=== PATIENT | female | born 1975 | race Caucasian/White ===

== ENCOUNTER → 2024-01-04 10:18 | Outpatient (BNVA) | payer BC, SELFPAY | PROVIDERS: PCP Obstetrics & Gynecology Female Pelvic Medicine and Reconstructive Surgery; Visit Provider Physician Assistant ==

== ENCOUNTER → 2024-01-04 10:18 | Outpatient (BNVA) | payer BC, SELFPAY | PROVIDERS: PCP Obstetrics & Gynecology Female Pelvic Medicine and Reconstructive Surgery; Referring Provider Physician Assistant; Visit Provider Physician Assistant ==

== ENCOUNTER 2024-01-09 12:36 | Outpatient (REF) | payer BC, SELFPAY ==
--- NOTE | ~2024-01-09 | MR_ITS ---
MR CERVICAL SPINE WITHOUT IV CONTRAST CLINICAL INFORMATION: Myelopathic reflexes on exam. COMPARISON: None available. TECHNIQUE: MRI of the cervical spine was obtained using routine sequences without contrast. FINDINGS: Reversal of the cervical lordosis. Vertebral body heights are maintained. There is moderate disc volume loss at C4-C5 and C5-C6. There is no bone marrow edema. There are no acute fractures. The craniocervical junction is unremarkable. Partially imaged intracranial compartment is unremarkable. Cervical arterial flow voids are maintained. C2-C3: Disc contour posteriorly is normal. Uncovertebral joint spurring and facet arthropathy result in mild bilateral foraminal encroachment. C3-C4: Disc contour is normal. There is no central canal stenosis and there is no foraminal stenosis. C4-C5: A broad-based left paracentral/left foraminal disc protrusion that is in part disc osteophyte results in flattening of the left ventral cord, mild to moderate left-sided central canal stenosis, effacement of the left axillary recess, and severe left-sided foraminal stenosis with compression of the exiting left C5 nerve root. C5-C6: There is a broad-based right paracentral disc protrusion resulting in severe central canal stenosis, significant mass effect on the cervical spinal cord, and effacement of the right greater than left axillary recess. Possible mild intramedullary T2 signal changes within the left cord at this level that can be correlated for clinical signs of cervical myelopathy. Uncovertebral joint spurring and facet arthropathy result in severe left and moderate to severe right foraminal stenosis. C6-C7: Diffuse annular disc bulge. Uncovertebral joint spurring and facet arthropathy result in moderate left-sided foraminal encroachment. C7-T1: Normal. MR/MR cervical spine wo con IMPRESSION: * At C5-C6, there is a broad-based right paracentral disc protrusion resulting in severe central canal stenosis, significant mass effect on the cervical spinal cord, and effacement of the right greater than left axillary recess. Possible mild intramedullary T2 signal changes within the left cord at this level that can be correlated for clinical signs of cervical myelopathy. Uncovertebral joint spurring and facet arthropathy result in severe left and moderate to severe right foraminal stenosis at C5-C6. * At C4-C5, a broad-based left paracentral/left foraminal disc protrusion that is in part disc osteophyte results in flattening of the left ventral cord, mild to moderate left-sided central canal stenosis, effacement of the left axillary recess, and severe left-sided foraminal stenosis with compression of the exiting left C5 nerve root. * At C6-C7, multifactorial degenerative changes result in moderate left-sided foraminal stenosis.
== END 2024-01-09 12:37 | disposition home or self-care (01) ==
LOC: HO.MRI 12:36
PROVIDERS: PCP Family Medicine; Visit Provider Physician Assistant
DX: G95.9 Disease of spinal cord, unspecified (principal)
CPT/HCPCS: 72141

== ENCOUNTER 2024-01-18 10:07 | Outpatient (AMB) | payer BC, SELFPAY ==
--- NOTE | 2024-01-18 10:09 | HO.SPINEOV ---
Intake Intake Visit Reasons: Discuss sx Intake Note: Ms. Castillo is here today to discuss surgery. 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 To recap she was initially seen for lumbar spine complaints and was found to have myelopathic reflexes on exam. Her primary complaint was found to be numbness/tingling in her bilateral upper extremities. She had also been dropping objects and experiencing a great deal of distress throughout the day. On examination today she has redemonstration of her myelopathic reflexes including (+) Caro's bilaterally, hyperreflexia diffusely, and (+) Babinski sign bilaterally. Upon review of her cervical MRI, she was found to have severe spinal canal stenosis at C5-6, with associated foraminal stenosis at this level. She also has moderate spinal canal and foraminal stenosis at C4-5, worse on the left. She was evaluated in office today alongside Dr. Schafer who offered the patient a C4-5, C5-6 ACDF to address her cervical myelopathy. She has been tentatively been scheduled for 02/07/2024. Hari was given risk and benefits of surgery including but not limited to infection, hematoma, nerve injury, durotomy, weakness, bowel/bladder injury, persistent pain, as well as the option to continue with conservative treatment and patient wishes to proceed with surgery. They are aware they should stop NSAIDs 7 days prior to surgery. All questions were answered to the best of our ability. If there is anything about this patients medical history that we have overlooked or concerns you have about us proceeding with surgery we would appreciate any input you can offer. Total amount of time spent in this visit was 30 minutes in discussion of symptoms, surgical scheduling, MRI imaging results and subsequent plan of care. Marco Schafer MD,PhD [facility] Coding Level of Care Code Est Pt Level 4 (82465) Diagnoses Cervical myelopathy G95.9
== END 2024-01-18 11:01 | disposition home or self-care (01) ==
PROVIDERS: PCP Family Medicine; Visit Provider Physician Assistant
DX: G95.9 Disease of spinal cord, unspecified (principal)
CPT/HCPCS: 99214

== ENCOUNTER → 2024-01-18 10:07 | Outpatient (BNVA) | payer BC, SELFPAY | PROVIDERS: PCP Family Medicine; Visit Provider Physician Assistant ==

== ENCOUNTER → 2024-01-26 10:12 | Outpatient (BNV) | payer BC, SELFPAY | PROVIDERS: PCP Family Medicine; Visit Provider Internal Medicine Cardiovascular Disease | DX: I10 Essential (primary) hypertension (principal); Z01.810 Encounter for preprocedural cardiovascular examination | CPT/HCPCS: 93010 ==

== ENCOUNTER 2024-02-07 09:04 | Day surgery (SDC) | payer BC, SELFPAY ==
--- NOTE | 2024-01-26 | ECG_ITS ---
Test Reason : PREOP Blood Pressure : / mmHG Vent. Rate : 088 BPM Atrial Rate : 088 BPM P-R Int : 112 ms QRS Dur : 078 ms QT Int : 360 ms P-R-T Axes : 055 072 037 degrees QTc Int : 435 ms Normal sinus rhythm Normal ECG No previous ECGs available Referred By: Yris Baca Electronically Signed By:TESSIE MEJIA MD
[2024-01-26 09:32] VITALS: BP 166/98; PULSE 87; RESP 18; O2SAT 97; BMI 27.3
--- NOTE | 2024-01-26 09:52 | HO.ANESPROP2 ---
Documented by User: Yris Baca NP 02/15/24 15:08 HPI - Anesthesia Eval Consult details Narrative: 48yo F for C4-5,C5-6 Ant Cerv Discectomy w/ fusion, 02/07/24 BP up at PAT. Reports stressful social situation and increased pain. Will check at home and bring log DOS. PMFSH Active Problems Active Problems: All Active Problems Cervical myelopathy (Acute) Past Medical History Medical History HTN (hypertension) Arthritis Numbness Cough Wheezing Hx of fracture of leg Adrenal mass Renal cyst Thyroid nodule ADHD (attention deficit hyperactivity disorder) Family History Family history of problems with anesthesia: No Surgical History Surgical History H/O colonoscopy History of surgery on right wrist History of wisdom tooth extraction Hx of total adrenalectomy History of Problems with Anesthesia: No Social History Social History Are you a primary resident care manager rn to a significant other at home: No Do you presently have visiting nurse or other home services: No Patient Tobacco Use Status: Never used Tobacco Meds Allergies Allergy/AdvReac Type Severity Reaction Status Date / Time lisinopril Allergy Flushing Verified 01/25/24 10:25 pollen extracts Allergy Unknown Verified 01/25/24 10:25 Exam Height,Weight and Vital Signs: Height 5 ft 5 in Weight 74.389 kg Last Vital Signs Pulse 87 01/26/24 09:32 Resp 18 01/26/24 09:32 BP 166/98 H 01/26/24 09:32 Pulse Ox 97 01/26/24 09:32 O2 Del Method Room Air 01/26/24 09:32 Pertinent Lab Results Pertinent Lab Results: Lab Results 01/26/24 Range/Units 10:27 WBC 6.8 (4.8-10.8) X10*3/uL RBC 4.89 (4.20-5.50) X10*6/uL Hgb 15.3 (12.0-16.0) g/dl Hct 44.4 (37.0-47.0) % MCV 90.8 (80.0-98.0) fL MCH 31.3 (27.0-33.0) pg MCHC 34.5 (31.0-35.0) g/dl RDW 12.0 (11.0-16.0) % Plt Count 327 (160-400) X10*3/uL MPV 9.9 (9.4-12.3) fL Absolute Nucleated RBC 0.000 (0.0-0.012) X10*3/uL Nucleated RBC % (auto) 0.0 (0.0-0.2) /100WBC Sodium 140 (135-145) mmol/L Potassium 4.4 (3.3-5.1) mmol/L Chloride 104 (96-108) mmol/L Carbon Dioxide 30 H (22-29) mmol/L Anion Gap 10 L (12-20) BUN 9 (9-16) mg/dL Creatinine 0.64 (0.5-1.4) mg/dL Estim Creat Clear Calc 108.5 Estimated GFR > 60 Random Glucose 95 (60-115) mg/dL Calcium 10.0 (8.4-10.2) mg/dL Narrative Narrative: EKG 01/2024 Vent. Rate : 088 BPM Atrial Rate : 088 BPM P-R Int : 112 ms QRS Dur : 078 ms QT Int : 360 ms P-R-T Axes : 055 072 037 degrees QTc Int : 435 ms Normal sinus rhythm Normal ECG No previous ECGs available Airway TM Dist: >3cm Neck ROM: Limited Loose/Missing/Broken Teeth: Yes (Molar pulled. Temp crown stable) Heart: RRR Lungs: CTAB Assessment and Plan Assessment Anesthesia Assessment: Anesthesia Plan Discussed and PAT Visit Final Anesthetic Review Family History of Problems with Anesthesia: No History of Problems with Anesthesia: No Documented by User: Flako Duarte MD 02/16/24 12:36 COUNT INCLUDES THE [facility] Past Medical History Medical History HTN (hypertension) Arthritis Numbness Cough Wheezing Hx of fracture of leg Adrenal mass Renal cyst Thyroid nodule ADHD (attention deficit hyperactivity disorder) Surgical History Surgical History H/O colonoscopy History of surgery on right wrist History of wisdom tooth extraction Hx of total adrenalectomy Social History Social History Are you a primary resident care manager rn to a significant other at home: No Do you presently have visiting nurse or other home services: No Patient Tobacco Use Status: Never used Tobacco Meds Allergies Allergy/AdvReac Type Severity Reaction Status Date / Time lisinopril Allergy Flushing Verified 01/25/24 10:25 pollen extracts Allergy Unknown Verified 01/25/24 10:25 Assessment and Plan Final Anesthetic Review ASA Class: II Final Preanesthetic Review: No Changes in Pt Med Stat, Meds/Allgs Chart Reviewed, Consent Obtained/Reviewed and Anes Risks/Benef Reviewed Patient Risk: Low Procedure Risk: Low Anesthetic Plan Anesthetic Plan: GA Disposition: Standard PACU
[2024-01-26 10:51] LABS: Hematocrit 44.4 % (37.0-47.0); Hemoglobin 15.3 g/dl (12.0-16.0); Mean Corpuscular HGB Conc 34.5 g/dl (31.0-35.0); Mean Corpuscular Hemoglobin 31.3 pg (27.0-33.0); Mean Corpuscular Volume 90.8 fL (80.0-98.0); Mean Platelet Volume 9.9 fL (9.4-12.3); Platelet Count 327 X10*3/uL (160-400); Red Blood Count 4.89 X10*6/uL (4.20-5.50); White Blood Count 6.8 X10*3/uL (4.8-10.8)
[2024-01-26 11:23] LABS: Anion Gap 10 (12-20); Blood Urea Nitrogen 9 mg/dL (9-16); Carbon Dioxide 30 mmol/L (22-29); Chloride 104 mmol/L (96-108); Creatinine Clr Calc Pharmacy 108.5; Estimated Glomerular Filt Rate > 60; Glucose Random 95 mg/dL (60-115); Potassium 4.4 mmol/L (3.3-5.1); Sodium 140 mmol/L (135-145)
[2024-02-07] VITALS (15 sets, daily range): BP systolic 115–160; BP diastolic 51–93; PULSE 73–85; RESP 10–17; TEMP 36.1–37; O2SAT 95–99
--- NOTE | ~2024-02-07 | FL_ITS ---
EXAMINATION: XR FLUOROSCOPY WITH IMAGES CLINICAL INFORMATION: C4-5, C5-6 Ant Cerv Disc w/ fusion. COMPARISON: None available. TECHNIQUE: Fluoroscopy Supervised By: Dr. Schafer. Fluoroscopy Time: 3.9 sec. Cumulative Dose: 0.998 mGy. DAP: 0.340 Gycm2. Images: 2. FINDINGS: Intraoperative fluoroscopy and spot films were performed during a procedure in the OR. ACDF hardware seen at C4-C5 and C5-C6. Please see Dr. Schafer' report for complete details. FL/FL guidance in OR IMPRESSION: Intraoperative fluoroscopy and spot films were obtained. Please see Dr. Schafer' report for complete details.
--- NOTE | 2024-02-07 07:03 | MHC.SHP ---
Pre-Procedural Eval Section A - 24 Hr Update-Section A only Date of Service: 02/07/24 The patient is an INPATIENT: No Changes since office visit: No Cold of Flu in the past 2 weeks, No New Medical Problems, No Changes in Medication and No Patient answered all questions The patient has been examined within 24 hours of the surgical procedure. The History & Physical has been completed within 30 days and I have reviewed it.: No Section B - Complete if H&P > 30 days Chief Complaint: Disease of spinal cord, unspecified Allergies: Allergies Allergy/AdvReac Type Severity Reaction Status Date / Time lisinopril Allergy Flushing Verified 01/25/24 10:25 pollen extracts Allergy Unknown Verified 01/25/24 10:25 Review of Systems Sugical H&P ROS: Negative: Constitution, Cardiovascular, Respiratory, Neurological, Psychiatric, Hem-Onc, Allergic/Immunologic, Gastrointestinal, Genitourinary, Musculoskeletal, Integumentary, Endocrine and Eyes/Ears/Nose/Throat Exam Surgical H&P Exam: Not Evaluated: HEENT, Not Evaluated: Heart, Not Evaluated: Lungs, Not Evaluated: Extremities, Not Evaluated: Abdomen, Not Evaluated: Skin and Not Evaluated: Neurological Plan Diagnosis/Plan: Unchanged C4-5, C5-6 ACDF Time Spent With Patient Time: Total time managing care of this patient today _5___ minutes.
[2024-02-07 09:44] LABS: UPreg QC Valid YES; Urine Pregnancy NEGATIVE (NEGATIVE)
[2024-02-07] MEDS: methocarbamoL 750 MG TABLET PO (09:51)
[2024-02-07] MEDS: Gabapentin 300 MG CAPSULE PO (09:51)
[2024-02-07] MEDS: Lactated Ringers 1,000 ML 100 ML IVCONT (09:51)
--- NOTE | 2024-02-07 15:27 | W.PM.OPN ---
Operative Note Operative Note Date of Service: 02/07/24 Narrative: Preoperative Diagnosis: Cervical myelopathy Procedure: C4-C5, C5-C6 Anterior discectomy, arthrodesis and implantation cage ; C4-C6 anterior instrumentation ; local autograft; microscope Informed Consent was obtained for this operation. I have explained the nature, purpose and benefits of the operation. I have discussed the risks and benefit of the operation including possible complications or adverse events with patient/family. Alternative(s) were discussed with the patient with their relative benefits and risks as well as the consequences of not accepting the operation were included in obtaining consent. Surgeon: CYNDI CHO MD, PHD Procedure Assisted By: keisha Herrera Description of Procedure: Patient is suffering from progressive cervical myelopathy. MRI shows spinal cord compression at C4-5 C5-6. She was offered a anterior diskectomy and fusion of these levels. The procedure complications were explained. The patient was consented. The patient was brought to the operating room and endotracheally intubated. The patient was put in supine position with slight extension of the neck. Prep and drape was done followed by timeout. A mid cervical incision was made followed by opening of the platysma. The prevertebral fascia was reached following the natural planes while the physician assistant guest services manager provided manual retraction. The prevertebral fascia was opened to expose the disc space. A spinal needle was placed in the disk space to confirm the correct level with xray. The longus colli muscles were released bilaterally and a self retaining retractor was inserted. An initial diskectomy was done of C4-5 and C5-C6 towards the posterior annulus. Two Manakin Sabot pins were placed in the C5-C6 vertebral bodies and distraction was give over the interspace.The microscope was brought in. The remainder of the discectomy was completed. The posterior ligament was opened and resected to expose the underlying dura. Large Osteophytes were resected from the body of C5-C6 and saved for autograft. Significant spinal cord compression was present caused by the osteophytes. Bilateral foraminotomies were done. The endplates were prepared after which a 6 mm cage filled with autograft was inserted into the disc space. A separate attached plate was locked down with 2 x 14 mm screws as anterior instrumentation. Then attention was turned to the C4-5 disc space. Manakin Sabot pin was placed in the body of C4 and distraction was getting over the interspace. The diskectomy was completed. The posterior longitudinal ligament was opened on the right side and resected towards the left side where decompression of the spinal cord was. Large osteophytes were again resected to decompress the spinal cord and to decompress the exiting nerve root on the left side. No foraminal stenosis was present on the right side. A 6 mm cage filled with autograft was inserted into the disc space. A separate attached plate was locked down with 2 x 14 mm screw as anterior instrumentation. Final x-rays in AP and lateral projection showed a satisfactory position of the implants and instrumentation. The physician assistant guest services manager took over. The Manakin Sabot pin was removed. Hemostasis was done. He closed the incision in 2 layers with a 3-0 Vicryl. Steri-Strips used to approximate incision. An OpSite with Tegaderm was used to cover the incision. All sponge and needle counts were correct. Patient was extubated and transported in stable is to recovery room. Anesthesia: General Estimated Blood Loss (ml): 15 mL Duration of Surgery: 80 minutes Postoperative Plan: Discharge home Complications: None
--- NOTE | 2024-02-07 15:39 | PM.DS ---
DS: Providers Provider Date of Service: 02/07/24 Date of discharge: 02/07/24 Primary care physician: Elodia Mcleod MD Admitting clinician: Carlos Schafer DS: Diagnosis Discharge Diagnosis (1) Cervical myelopathy: Status: Acute DS: Summary Time Attestation Discharge Coordination Time (in mins): 6 Quality: Safe Use of Opioids Does Pt have an Active Cancer Diagnosis on the Problem List?: No Quality: Stroke Does the patient have a stroke diagnosis?: No Physical Exam Vital Signs: Vital Signs: Last Vital Signs Temp 98.6 F 02/07/24 09:53 Pulse 85 02/07/24 09:53 Resp 16 02/07/24 09:53 BP 160/93 H 02/07/24 09:53 Pulse Ox 98 02/07/24 09:53 O2 Del Method Room Air 02/07/24 09:53 BMI result Body Mass Index 27.3 DS: Data Data Completed and Pending Labs on day of discharge: Laboratory Results - last 24 hr 02/07/24 09:15 Urine Test NEGATIVE Discharge Plan Discharge Patient Disposition: Home, Self-Care Referrals: Elodia Mcleod MD [Primary Care Provider] - 1 Week Discharge Medications: New oxycodone 5 mg tablet 5 mg PO Q4H PRN (Reason: pain) Qty: 30 0RF Rx Instructions: Partial Fill upon patient request. docusate sodium [Colace] 100 mg capsule 100 mg PO BID Qty: 20 0RF Discharge Orders: Discharge Order (Routine); Ordered 02/07/24 Ordered By: Tone Britt Diet: Advance to usual diet Activity on Discharge: As tolerated Activity Restrictions/Additional Instructions: After your spinal surgery we ask you to observe the following restrictions/guidelines: Activity: It is normal to feel some discomfort as you increase your activity, but that will improve with time. We ask you avoid heavy lifting or acitivities that cause pain. As a general rule, 8lbs is a safe limit for lifting right after surgery. Walk as much as you feel comfortable but not to exhaustion. You will feel extra tired the first few days after surgery. Stay well hydrated. It is OK to walk up and down stairs You may return to driving when you are off narcotics (such as vicodin, oxycodone, dilaudid, etc), and you are back to normal functional capacity. If you have any concerns please check with office before driving. Return to work is specific to each patient and each surgery, so please speak with your doctor/PA at first follow up. Please bring paperwork such as FMLA at that time if you need it filled out. Medications: For optimum pain control, it is best to start with a combination of 500 mg of Tylenol every 4 hours with 600 mg of Motrin every 8 hours, and use narcotics as needed in between for breakthrough pain. We will give you a short supply of narcotics after surgery (usually one weeks worth). If you need more please call the office but do not use more than prescribed. You will need to give our office 48 hours notice if you need narcotics refilled and we do not fill narcotics on weekends or evenings. If you are on a narcotic, it is a good idea to take a stool softener such as colace or senna to avoid constipation If you take blood thinner such as aspirin, Plavix, Coumadin, Effient, Eliquis etc for conditions such as Afib, DVT, Pulmonary embolus, coronary disease, stents etc please speak with your surgeon about specific details as to when you can resume these medications. You can resume NSAIDs on post op day 1 (eg: Motrin, Naproxen, etc). Follow up: Please call the office, , after surgery to arrange a 3 week follow up for wound check. Wound Care: You may remove your dressing on the first day after surgery. ?You may ?leave open to air. Please do not remove the steri strips underneath. they will fall off on their own in one week. IT IS NORMAL FOR THE WOUND TO OOZE OR BE BLOODY FOR A FEW DAYS AFTER SURGERY. ?IF THIS HAPPENS JUST PLACE NEW DRESSING OVER IT TO AVOID STAINING CLOTHES. You may shower on post op day # 1 We ask that you do not let the water soak the wound. If it does get wet, just towel dry lightly. Please do not scrub your incision or place any type of chemical/ointment on the wound. No tub baths, pools or jacuzzis for one month. If you have any leaking or redness from your wound, or fevers, please call office Print Language: Croatian
[2024-02-07] MEDS: HYDROmorphone HCl 0.5 MG/0.5 ML SYRINGE IVPUSH ×2 (16:15→16:35)
== END 2024-02-07 18:10 | disposition home or self-care (01) ==
PROVIDERS: Nurse Practitioner; PCP Family Medicine; Visit Provider Neurological Surgery
PROC: (CPT 22551; principal; 2024-02-07 12:30)
DX: G95.9 Disease of spinal cord, unspecified (principal); R20.0 Anesthesia of skin; R20.2 Paresthesia of skin; I10 Essential (primary) hypertension; F90.9 Attention-deficit hyperactivity disorder, unspecified type; Z80.3 Family history of malignant neoplasm of breast; Z88.8 Allergy status to other drugs, medicaments and biological substances
CPT/HCPCS: 22551; 22552; 22853; 20936; 22845; 36415; 80048; 81025; 85027; 93005; C1713; C1889; J0131; J0690; J1100; J1170; J2250; J2405; J2704; J3010

== ENCOUNTER → 2024-02-07 09:04 | Outpatient (BNV) | payer BC, SELFPAY | PROVIDERS: PCP Family Medicine; Visit Provider Neurological Surgery | DX: M50.021 Cervical disc disorder at C4-C5 level with myelopathy (principal); M50.022 Cervical disc disorder at C5-C6 level with myelopathy; G95.9 Disease of spinal cord, unspecified | CPT/HCPCS: 20930; 22551; 22552; 22845; 22853; 99499 ==

== ENCOUNTER 2024-02-28 14:57 | Outpatient (AMB) | payer BC, SELFPAY ==
--- NOTE | 2024-02-28 15:01 | HO.SPINEOV ---
Intake Visit Reasons: 1st post op Intake Note: Ms. Castillo is here today for her 1st post-op appointment. Warehouse Manager Required: No Allergies lisinopril Allergy (Verified 01/25/24 10:25) Flushing pollen extracts Allergy (Verified 01/25/24 10:25) Unknown Assessment & Plan Assessment & Plan (1) Cervical myelopathy: Code(s): G95.9 - Disease of spinal cord, unspecified Category: Medical Plan Procedure: C4-C5, C5-C6 ACDF Hari comes in today for her 1st postoperative visit. She reports she is satisfied with the surgery and feels better than she did pre-operatively. The patient reports she is up walking around and completing the majority of her ADLs. She reports that she no longer suffers from her bilateral hand weakness, numbness/tingling, or left-sided foot pain. She does have some posterior neck tenderness, which I explained to her his very common for these types of surgery. She asked several questions regarding the postoperative healing course which I answered to the best of my ability. No new neurological deficits. Patient is able to ambulate well, rises from a seated position without difficulty. Incision site is closed, well healing, with no signs of drainage. I wrote Hari a letter to return to work. We will follow-up with her in 6 weeks for her 2nd postoperative visit. At that time we will get x-rays to review with the patient. Marco Schafer MD,PhD [facility] Coding Level of Care Code Global (46837) Diagnoses Cervical myelopathy G95.9
== END 2024-02-28 15:17 | disposition home or self-care (01) ==
PROVIDERS: PCP Family Medicine; Visit Provider Physician Assistant
DX: G95.9 Disease of spinal cord, unspecified (principal)
CPT/HCPCS: 99024

== ENCOUNTER → 2024-02-28 14:57 | Outpatient (BNVA) | payer BC, SELFPAY | PROVIDERS: PCP Family Medicine; Visit Provider Physician Assistant ==

== ENCOUNTER 2024-04-10 11:02 | Outpatient (REF) | payer OTHER, SELFPAY ==
--- NOTE | ~2024-04-10 | XR_ITS ---
EXAMINATION: XR CERVICAL SPINE CLINICAL INFORMATION: Disease of spinal cord. COMPARISON: 01/09/2024 MR cervical spine, fluoroscopy images February 07, 2024. TECHNIQUE: 4 views of the cervical spine. FINDINGS: ACDF hardware at C4-C5 and C5-C6. Hardware appears intact. Alignment is stable on flexion and extension views. Mild spondylosis in the remainder of the cervical spine. Straightening of the normal cervical lordosis on neutral view with minimal anterolisthesis of C2 on C3. XR/XR cervical spine 4V IMPRESSION: ACDF hardware at C4-C5 and C5-C6. Hardware appears intact. Alignment is stable on flexion and extension views.
== END 2024-04-10 11:03 | disposition home or self-care (01) ==
LOC: HO.HOSX 11:02
PROVIDERS: Visit Provider Physician Assistant
DX: G95.9 Disease of spinal cord, unspecified (principal)
CPT/HCPCS: 72050

== ENCOUNTER 2024-04-10 13:23 | Outpatient (AMB) | payer OTHER, SELFPAY ==
--- NOTE | 2024-04-10 13:39 | A.SPINEOV_ITS ---
Intake Visit Reasons: 2nd post op with xrays Intake Note: Ms. Castillo is here today for her 2nd post op visit. Contracts Analyst Required: No Allergies lisinopril Allergy (Verified 04/10/24 13:42) Flushing pollen extracts Allergy (Verified 04/10/24 13:42) Unknown Assessment & Plan Assessment & Plan (1) Cervical myelopathy: Code(s): G95.9 - Disease of spinal cord, unspecified Category: Medical Plan Procedure: C4-5, C5-6 ACDF Hari comes in today for a follow-up visit after having a C4-5, C5-6 ACDF completed by our service. She continues to report resolution of symptoms/pain. She states she is back to work and has been completing her job without significant issue. She did recently take a long car ride which she feels sort of exacerbated her pain, but overall she continues to feel well. We discussed the postoperative healing course, and I answered all the questions that she had. We reviewed her postoperative x-rays during this visit, which shows stable placement of surgical instrumentation and no changes from fluoroscopy. No new neurological deficits. The patient is able to ambulate well and rises from seated position without difficulty. Her gait is non spastic. I would like to follow up with Hari 1 more time in roughly 1 month for her 3rd postoperative visit to ensure that she continues to heal well. Marco Schafer MD,PhD [facility] Orders: Orders XR cervical spine 4V Today G95.9 - Disease of spinal cord, unspecified Coding Level of Care Code Global (58428) Diagnoses Cervical myelopathy G95.9
== END 2024-04-10 13:53 | disposition home or self-care (01) ==
PROVIDERS: PCP Family Medicine; Visit Provider Physician Assistant
DX: G95.9 Disease of spinal cord, unspecified (principal)
CPT/HCPCS: 99024

== ENCOUNTER 2024-05-07 13:05 | Outpatient (AMB) | payer OTHER, SELFPAY ==
--- NOTE | 2024-05-07 13:09 | HO.SPINEOV ---
Intake Visit Reasons: 3rd post op Intake Note: Ms. Castillo is here today for her 3rd Post-op Visit. Direct Entry Midwife Required: No Allergies lisinopril Allergy (Verified 05/07/24 13:10) Flushing pollen extracts Allergy (Verified 05/07/24 13:10) Unknown Assessment & Plan Assessment & Plan (1) Cervical myelopathy: Code(s): G95.9 - Disease of spinal cord, unspecified Category: Medical Plan Hari comes in today for a subsequent follow-up visit after having a C5-6 ACDF completed by our service. She continues to heal very well since her surgery. She reports complete resolution of symptoms. She is in the midst of switching jobs and has been moving around boxes and desks without issue. She denies any numbness/tingling in her upper extremities, and reports no weakness in her upper extremities. No shooting pains. No difficulties with hand box lining machine feeder or strength. On examination Hari has 5/5 strength in her upper extremities. She has no significant sensational deficits. She does continue to have a bilateral Sheela sign, but this likely will be longstanding. There is no need for continued routine follow-up with Hari. She may follow-up as needed if she has any redemonstration of symptoms. Marco Schafer MD,PhD [facility] Coding Level of Care Code Global (14153) Diagnoses Cervical myelopathy G95.9
== END 2024-05-07 13:25 | disposition home or self-care (01) ==
PROVIDERS: PCP Family Medicine; Visit Provider Physician Assistant
DX: G95.9 Disease of spinal cord, unspecified (principal)
CPT/HCPCS: 99024

== ENCOUNTER → 2024-05-07 13:05 | Outpatient (BNVA) | payer OTHER, SELFPAY | PROVIDERS: PCP Family Medicine; Visit Provider Physician Assistant ==